=== PATIENT | female | born 1955 ===

== ENCOUNTER 2018-09-15 06:24 | Observation (INO) | payer MEDICAID ==
--- NOTE | 2018-09-15 07:12 | Emergency Department Record ---
History of Present Illness - General Chief complaint: Lower Extremity Pain Stated complaint: LEG PAIN Time Seen by Provider: 09/15/18 07:06 Source: Patient Mode of Arrival: Ambulatory Limitations: No limitations - History of Present Illness Initial comments: 63 yo female presents with left thigh pain and swelling since Saturday. She states this occurred once before after surgery in June for a hysterectomy. No cough, no chest pain, no fever. She had a doppler at that time in June it was negative then. The pain come on then after lifting a heavy bag of cat food. This weekend she can not identify any obvious injury. No warmth, no rash, no coolness. She is able to walk. No weakness. MD Complaint: Extremity pain, Extremity swelling Onset/Timin -: Days(s) Location: Left, Thigh -: Yes Arthralgia, Yes Myalgia Radiation: Proximal Severity scale (1-10): 9 Quality: Aching Consistency: Constant Improves with: Nothing Worsens with: Nothing Associated Symptoms: Denies other symptoms - Related Data Home Medications Medication Instructions Recorded Confirmed Last Taken Atorvastatin Calcium 20 mg PO DAILY 09/15/18 09/15/18 09/15/18 Citalopram Hydrobromide 40 mg PO DAILY 09/15/18 09/15/18 09/15/18 [Citalopram HBr] Lactulose 10 gm PO DAILY 09/15/18 09/15/18 09/15/18 Lisinopril 40 mg PO DAILY 09/15/18 09/15/18 09/15/18 Ranitidine HCl [Zantac] 150 mg PO DAILY 09/15/18 09/15/18 09/15/18 Allergies Allergy/AdvReac Type Severity Reaction Status Date / Time No Known Drug Allergies Allergy Verified 09/15/18 06:42 Travel Screening - Travel/Exposure Within Last 30 Days Have you traveled within the last 30 days?: No - Travel/Exposure Within Last Year Have you traveled outside the [place] in the last year?: No - Additonal Travel Details Have you been exposed to anyone with a communicable illness?: No Review of Systems Constitutional: Denies: Chills, Fever, Malaise, Weakness Eyes: Denies: Eye discharge ENT: Denies: Congestion, Throat pain Respiratory: Denies: Cough, Dyspnea, Hemoptysis, Wheezes Cardiovascular: Denies: Chest pain, Syncope Endocrine: Denies: Fatigue Gastrointestinal: Denies: Abdominal pain, Diarrhea, Nausea, Vomiting Genitourinary: Denies: Dysuria, Urgency Musculoskeletal: Reports: Arthralgia, Myalgia. Denies: Back pain, Joint swelli ng Skin: Denies: Bruising, Change in color, Rash Neurological: Denies: Headache, Numbness, Tremors, Weakness Psychiatric: Denies: Anxiety Hematological/Lymphatic: Denies: Blood Clots, Easy bleeding, Easy bruising, Swollen glands Past Medical History - SOCIAL HISTORY Smoking Status: Never smoker Alcohol Use: None Drug Use: Occasional Drug Use Detail:: Marijuana - RESPIRATORY Hx Respiratory Disorders: No - CARDIOVASCULAR Hx Cardio Disorders: No - NEURO Hx Neuro Disorders: No - GI Hx GI Disorders: No - Hx Genitourinary Disorders: No - ENDOCRINE Hx Endocrine Disorders: No - MUSCULOSKELETAL Hx Musculoskeletal Disorders: No - PSYCH Hx Psych Problems: Yes Hx Anxiety: Yes Hx Depression: Yes Family Medical History Any Significant Family History?: No Family Hx Comment (NOT TO BE USED IN PLACE OF ITEMS BELOW): pt adopted. Physical Exam - General General Appearance: Alert, Oriented x3, Cooperative, No acute distress Limitations: No limitations - Head Head exam: Atraumatic, Normal inspection - Eye Eye exam: Normal appearance. negative: Conjunctival injection, Scleral icterus - ENT ENT exam: Normal exam, Mucous membranes moist Ear exam: Normal external inspection Nasal Exam: Normal inspection Mouth exam: Normal external inspection - Neck Neck exam: Normal inspection - Respiratory Respiratory exam: Normal lung sounds bilaterally. negative: Respiratory distres s - Cardiovascular Cardiovascular Exam: Regular rate, Normal rhythm, Normal heart sounds Peripheral Pulses: 2+: Dorsalis Pedis (R), Dorsalis Pedis (L) - GI/Abdominal GI/Abdominal exam: Soft. negative: Tenderness - Rectal Rectal exam: Deferred - exam: Deferred - Extremities Extremities exam: Normal inspection, Full ROM, Normal capillary refill, Tenderness (tender thigh), Other (Minimal swelling, right thigh vs left. The thigh is soft, calf is non tender and no visible swelling, the leg is appropriately warm with brisk CR, normal skin appearance.). negative: Calf ten derness, Joint swelling, Pedal edema - Back Back exam: Denies: CVA tenderness (R), CVA tenderness (L) - Neurological Neurological exam: Alert, Normal gait (Mild limp due to pain), Oriented X3, Reflexes normal, Other (Foot flexion full and intact, foot extension full and intact, EHL intact, lifts leg off bed easily but causes some thigh pain). negative: Abnormal gait, Altered, Motor sensory deficit - Psychiatric Psychiatric exam: Normal affect, Normal mood. negative: Agitated, Anxious - Skin Skin exam: Dry, Intact, Normal color, Warm Course Vital Signs 09/15/18 09/15/18 06:31 06:51 Temperature 98.7 F Pulse Rate [ 96 H Pulse Ox Probe] Respiratory 24 Rate Blood Pressure 142/84 [Left Arm] Pulse Ox 94 L - Reevaluation(s) Reevaluation #1: 09/15/18 07:44 CBC was normal Preliminary report is positive for DVT Lovenox given waiting final report 09/15/18 08:21 Venous dopper is positive for occluding DVT of the EIV, GSV, and proximal FV. The Mid and Distal FV, and PV are partially occluding. 09/15/18 08:25 No acute changes on the labs 09/15/18 08:28 [facility] reviewed. negative doppler on 07/22/18 at [facility] 09/15/18 08:35 Dr Rhodes accepts the patient for admission Medical Decision Making - Lab Data Result diagrams: 09/15/18 07:55 09/15/18 07:55 Disposition Disposition: Admit Clinical Impression: DVT (deep venous thrombosis) Qualifiers: DVT location: lower extremity Affected thrombotic vein of extremity: femoral Chronicity: acute Laterality: left Qualified Code(s): I82.412 - Acute embolism and thrombosis of left femoral vein Disposition: Still a Patient at [facility] Decision to Admit: Admit from ER Decision to Admit Date: 09/15/18 Decision to Admit Time: 08:10 Condition: (2) Stable Forms: Patient Portal Access Time of Disposition: 08:25 Quality - Quality Measures Quality Measures: N/A - Blood Pressure Screening Does Patient Have Any of the Following: Active Dx of HTN Blood Pressure Classification: Normal BP Reading Systolic Measurement: 113 Diastolic Measurement: 74 Screening for High Blood Pressure: Patient Exclusion, Hx of HTN [G9744]
[2018-09-15] MEDS ORDERED: ENOXAPARIN 100 MG/ML SYR SQ ONE (07:54)
[2018-09-15] MEDS ORDERED: MORPHINE SULFATE 10MG/1ML **1ML VIAL IVP ONE (07:56)
[2018-09-15 08:03] LABS: ABSOLUTE NEUTROPHIL COUNT 10.31; HEMATOCRIT 39.9 % (35.0-47.0); HEMOGLOBIN 12.8 gm/dl (11.6-16.0); MEAN CELL VOLUME 94.5 fl (81-97); MEAN CORPUSCULAR HEMOGLOBIN 30.3 pg (27-33); MEAN CORPUSCULAR HGB CONC 32.1 g/dl (32-36); MEAN PLATELET VOLUME 9.3 fl (7.4-10.4); PLATELET COUNT 497 K/uL (130-400); RED BLOOD COUNT 4.22 M/uL (3.80-5.40); RED CELL DISTRIBUTION WIDTH 13.5 % (11.5-14.5); WHITE BLOOD COUNT W/O DIFF 12.2 K/uL (4.2-12.2)
[2018-09-15 08:10] LABS: BLOOD UREA NITROGEN 10 mg/dL (8-23)
[2018-09-15 08:11] LABS: CREATININE 0.6 mg/dL (0.5-0.9); EST GLOMERULAR FILTRATION RATE > 60 mL/min
[2018-09-15 08:13] LABS: GLUCOSE,RANDOM 123 mg/dL (74-109); INR 1.1; PARTIAL THROMBOPLASTIN TIME 28.4 SECONDS (24.5-39.1); PLATELET ESTIMATE INCREASED (NORMAL); PROTHROMBIN TIME (PATIENT) 10.9 SECONDS (9.5-12.1)
[2018-09-15] MEDS ORDERED: ACETAMINOPHEN 500 MG TABLET PO PRN (09:49)
[2018-09-15] MEDS ORDERED: MORPHINE SULFATE 10MG/1ML **1ML VIAL IVP PRN (09:49)
[2018-09-15] MEDS: 0.9 % SODIUM CHLORIDE 1000ML 1,000 ML IV PRN ×2 (09:59→19:36)
[2018-09-15] MEDS: CITALOPRAM 20 MG TABLET PO SCH (10:22)
[2018-09-15] MEDS: LISINOPRIL 20 MG TABLET PO SCH (10:22)
[2018-09-15] MEDS: ATORVASTATIN 20 MG TABLET PO SCH (10:22)
[2018-09-15] MEDS: RANITIDINE HCL 150 MG TABLET PO SCH (10:22)
--- NOTE | 2018-09-15 12:33 | US VENOUS DOPPLER REPORT ---
EXAM: LEFT LOWER EXTREMITY VENOUS DOPPLER ULTRASOUND HISTORY: RIGHT THIGH PAIN AND SWELLING BEGINNING THREE DAYS AGO. TECHNIQUE: Boland scale, color Doppler and Duplex Doppler evaluation of the deep venous structures of the left lower extremity were performed from the level of the external iliac vein though the popliteal vein. Imaging of the right external iliac, common femoral and greater saphenous veins were also performed. FINDINGS: On the left, the external iliac, common femora, deep femoral, greater saphenous, all levels of the superficial femoral, and popliteal veins are heterogeneous in echotexture throughout. They are noncompressible. Abnormal venous waveforms are noted at all levels. Mild flow is, however, demonstrated in the mid and distal portions of the superficial femoral vein and popliteal vein. The calf veins are not imaged. No evidence of deep venous thrombosis within the right external iliac, common femoral, nor greater saphenous veins. IMPRESSION: FINDINGS CONSISTENT WITH DEEP VENOUS THROMBOSIS WITHIN THE LEFT LOWER EXTREMITY WITH APPARENT OCCLUDING THROMBUS AT THE EXTERNAL ILIAC, COMMON FEMORAL, GREATER SAPHENOUS, AND PROXIMAL SUPERFICIAL FEMORAL LEVELS. NONOCCLUDING THROMBUS AT THE MID AND DISTAL SUPERFICIAL FEMORAL VEIN LEVEL AND POPLITEAL VEIN LEVEL ON THE LEFT. JOB NUMBER: [id number] MTDD
[2018-09-15] MEDS ORDERED: ACETAMINOPHEN 325 MG TAB PO PRN (13:49)
--- NOTE | 2018-09-15 17:21 | History and Physical Report ---
DATE: 09/15/2018 at 2 p.m. CHIEF COMPLAINT: Left leg pain and swelling. HISTORY OF PRESENT ILLNESS: This 63-year-old female developed swelling and pain in the thigh of her left leg medially and anteriorly which started 2 days prior. She also had a similar pain approximately 3 weeks ago but a DVT venous Doppler was done which was negative. Today the venous Doppler is positive. She had hysterectomy 2 months ago at [facility] for cervical and uterine cancer. She was seen in the ER by Dr. Ponce and admitted to the hospital. Started on Lovenox 100 mg b.i.d. Her primary doctor is Dr. Hou. She states that her breathing is at her baseline. She uses an inhaler p.r.n., albuterol. Never smoked. PAST MEDICAL HISTORY: Hypertension, constipation, cervical and uterine cancer. Some anxiety and depression. Occasional marijuana. No alcohol use. Hypercholesterolemia. FAMILY HISTORY: No significant family history. Patient adopted. Does not know her family history. PAST SURGICAL HISTORY: Hysterectomy June 2018 for uterine and cervical cancer at [facility]. MEDICATIONS: 1. Lactulose 10 g daily for constipation. 2. Ranitidine 150 mg daily for GERD. 3. Lisinopril 40 mg daily. 4. Citalopram 40 mg daily (Celexa). 5. Atorvastatin 20 mg daily. REVIEW OF SYSTEMS: HEENT: No upper respiratory infection symptoms, cough, cold, or congestion. Cardiovascular: No chest pain, palpitations, or arrhythmia. Respiratory: Not short of breath. No smoking history. Occasional albuterol inhaler use. Gastrointestinal: She is constipated and uses lactulose p.r.n. 10 g. No abdominal pain, nausea, vomiting, or diarrhea. Genitourinary: No dysuria, hematuria, frequency, or burning on urination. Musculoskeletal: See Chief Complaint. She has left thigh pain and swelling. Neurological: No CVA, paralysis, or paresthesias. She does have a hard time moving the left leg, so we will get a femur to make sure there is nothing else weird going on. 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 No lumps in her breasts or any abnormal vaginal bleeding. Endocrine: She is not diabetic. No thyroid disease. Integument: No rash, ulcers, change in moles, or yellow skin. PHYSICAL EXAMINATION: VITALS: Height 5 feet 8 inches, weight 202 pounds. Temperature 97.6, pulse 84, blood pressure 120/75, pulse ox 92% on room air, respiratory rate 16, standing weight is 202, height is 5 feet 8 inches. HEENT: Pupils are equal, round, and reactive to light and accommodation. Extraocular muscles are intact. Throat is clear. Nose is clear. Tympanic membranes are mad[place]. NECK: Supple. No jugular venous distention. No hepatojugular reflux. No carotid bruits. Thyroid is smooth. CARDIOVASCULAR: Regular rate and rhythm without murmurs, clicks, rubs, or gallops. RESPIRATORY: Clear to auscultation and percussion. ABDOMEN: Soft, nontender. No hepatosplenomegaly, no masses, no tenderness. Bowel sounds are active. No bruits. EXTREMITIES: No pitting edema. No cyanosis, no clubbing. Full range of motion. Peripheral pulses are good. BREASTS: Exam deferred. GYNECOLOGICAL: Exam deferred. RECTAL: Exam deferred. NEUROLOGIC: Cranial nerves II-XII intact. No gross defects. Sensation normal, strength normal. Deep tendon reflexes equal bilaterally with Babinski negative. MENTAL STATUS: Alert and oriented x3. IMPRESSION: 1. Deep venous thrombosis of the left thigh. 2. Post hysterectomy 2 months ago. 3. Cervical uterine cancer. 4. Hypertension. 5. Hypercholesterolemia. 6. Gastroesophageal reflux disease. 7. Anxiety and depression. PLAN: Lovenox 100 mg twice a day at 1 mg/kg b.i.d. MTDD
[2018-09-15] MEDS ORDERED: ENOXAPARIN 100 MG/ML SYR SQ SCH (22:00)
--- NOTE | 2018-09-16 06:34 | RADIOLOGY REPORT ---
EXAM: LEFT FEMUR, TWO VIEWS HISTORY: LEFT THIGH PAIN. TECHNIQUE: AP and lateral views of the left thigh were obtained. Comparison: None. Encounter: Initial. FINDINGS: There is borderline osteopenia. No acute fracture, dislocation, or destructive bone lesion is seen. There are mild degenerative changes of the left hip and left knee. There is chronic appearing round calcification at the level of the quadriceps tendon on the lateral view of the distal femur. IMPRESSION: NO ACUTE BONE NOR JOINT ABNORMALITY. JOB NUMBER: [id number]
[2018-09-16] MEDS: 0.9 % SODIUM CHLORIDE 1000ML 1,000 ML IV PRN (06:36)
--- NOTE | 2018-09-16 08:00 | Discharge Note ---
VTE H&P Assessment - Risk for VTE Risk for VTE: Yes Risk Level: Moderate Risk Assessment Date: 09/15/18 Risk Assessment Time: 14:00 VTE Orders Placed or Will Be Placed: Yes Discharge Medications - Discharge Medications Prescriptions: Apixaban [Eliquis] 10 mg PO BID #74 tablet Home Medications: Ambulatory Orders Atorvastatin Calcium 20 mg PO DAILY 09/15/18 [Last Taken 09/15/18] Citalopram Hydrobromide [Citalopram HBr] 40 mg PO DAILY 09/15/18 [Last Taken 09/15/18] Lactulose 10 gm PO DAILY 09/15/18 [Last Taken 09/15/18] Lisinopril 40 mg PO DAILY 09/15/18 [Last Taken 09/15/18] Ranitidine HCl [Zantac] 150 mg PO DAILY 09/15/18 [Last Taken 09/15/18] Acetaminophen [Tylenol 325Mg] 650 mg PO Q4H PRN tablet 09/16/18 [Last Taken Unknown] Apixaban [Eliquis] 10 mg PO BID #74 tablet 09/16/18 [Last Taken Unknown] Discharge Note - Date Date of Discharge Note: 09/16/18 Disposition: Home, Self-Care Condition: (1) Good Additional Instructions: Follow up appointment at Dr. Paulina Hou's office SaturdaySeptember 22 at 2:40pm. You will be seeing DAVID Grewal with Dr. Hou in office to consult. . activity walking only and elevate leg when not moving around take eliquis 10 mg BID for 7 days than 5 mg BID for 3-6 months tylenol for pain Referrals: Paulina Hou [Primary Care Provider] - Forms: Patient Portal Access
[2018-09-16] MEDS: RANITIDINE HCL 150 MG TABLET PO SCH (09:22)
[2018-09-16] MEDS: ATORVASTATIN 20 MG TABLET PO SCH (09:22)
[2018-09-16] MEDS: CITALOPRAM 20 MG TABLET PO SCH (09:22)
[2018-09-16] MEDS: LISINOPRIL 20 MG TABLET PO SCH (09:23)
[2018-09-16] MEDS ORDERED: APIXABAN 5MG TABLET PO SCH (10:00)
--- NOTE | 2018-09-17 13:50 | Discharge Summary ---
DATE OF ADMISSION: 09/15/2018 DATE OF DISCHARGE: 09/16/2018 DISCHARGE DIAGNOSES: 1. Left leg DVT, 1st episode post surgery approximately 2 months ago hysterectomy. 2. Uterine cancer. 3. Status post hypertension. 4. Status post hypercholesterolemia. 5. Status post GERD. 6. Status post anxiety and depression. REASON FOR HOSPITALIZATION: Left leg pain and swelling. HISTORY OF PRESENT ILLNESS: This 63-year-old female presented with swelling and pain in the thigh of her left leg medially and anteriorly, which started 2 days prior to the ER. She also had a similar pain about 3 weeks ago, had a Doppler done in [place], which was negative for DVT. Today, the venous Doppler is positive. She had a hysterectomy 2 months ago at [facility] for cervical and uterine cancer. She was seen in the ER by Dr. Ponce and admitted to the hospital, started on Lovenox 100 mg b.i.d. Her primary doctor is Dr. Hou. She states that her breathing is at her baseline, she uses inhalers p.r.n., Albuterol. Never smoked. SIGNIFICANT FINDINGS FROM EXAMINATION: The venous Doppler showing findings consistent with deep vein thrombosis within the left lower extremity with apparent occluding thrombus of the external ileac, common femoral, greater saphenous, and proximal superficial femoral veins. A non-occluding thrombus at the mid and distal superficial femoral vein level and popliteal vein level on the left. A femur x-ray was negative for fractures on the left leg. LABORATORY: WBC is 12,200, hemoglobin 12.8, BUN 10, creatinine 0.6. THERAPY PROVIDED: The patient had Lovenox 1 mg/kg b.i.d. initially and then switched over to Eliquis 10 mg b.i.d. for 7 days and then dropped down to 5 mg b.i.d. for 3 to 6 months. HOSPITAL COURSE: Uneventful. She is moving around the room slowly. She said there is some discomfort in her thigh, but that is slowly getting better, the swelling is going down. CONDITION AT DISCHARGE: Stable and improved. DISCHARGE INSTRUCTIONS: Follow up with Dr. Hou on 09/22 as scheduled. Activity will be walking around only with elevation of the leg when not walking around. Tylenol for pain. New medication is Eliquis 10 mg b.i.d. for 7 days and 5 mg b.i.d. for 3 to 6 months. Continue her home medications of Lactulose 10 mg daily for constipation, Ranitidine 150 mg for GERD, Lisinopril 40 mg daily, and Celexa 40 mg daily, and atorvastatin 20 mg daily. MTDD
== END 2018-09-16 10:00 | disposition home or self-care (01) ==
LOC: ER 06:24 → MEDSURG 09:03
PROVIDERS: ADMIT Emergency Medicine; ATTEND Emergency Medicine
DX: I82.412 Acute embolism and thrombosis of left femoral vein (principal); I10 Essential (primary) hypertension; K59.00 Constipation, unspecified; E78.00 Pure hypercholesterolemia, unspecified; C53.9 Malignant neoplasm of cervix uteri, unspecified; C79.82 Secondary malignant neoplasm of genital organs; Z66 Do not resuscitate; F41.8 Other specified anxiety disorders
CPT/HCPCS: 80048; 85027; 85610; 85730; 96372; 96374; 99220; 99285; J1650; J2270